=== PATIENT | female | born 1945 | race Caucasian/White ===

== ENCOUNTER → 2016-06-10 | Outpatient (CLI) | payer OTHER ==
[~2016-06-10] MED LIST: ASPIR 8181 M1 PO; ASPIRIN81 M1 PO; ATIVAN1 MG PO; CALCIUM 500 MG1 EACH PO; CENTRUM SILVER1 EACH PO; CITRACAL PLUS1 EAC1 PO; COMPAZINE10 MG PO; EDLUAR10 MG SL; FLEXERIL10 MG PO; FLEXERIL5 MG PO; GLUCOPHAGE XR,500 MG PO; IRON160 M1 PO; LEVOTHROID,S0.075 MG PO; LEVOTHYROXINE75 MCG PO; LIPITOR40 MG PO; LUMIGAN 0.50 DROP/22 BOTH EYES; LYRICA50 MG PO; NEXIUM20 MG PO; NEXIUM40 MG PO; OMEGA-3 KRILL1 EACH PO; PAXIL CR25 MG PO; PAXIL CR37.5 MG PO; RECLAST 55 MG/100 M; THIAMINE,VITAM100 MG PO; TOPAMAX100 MG PO; TOPAMAX200 MG PO; Tylenol Regular Stre PO; ULTRAM50 MG PO; VITAMIN B-1100 MG PO; VITAMIN B-121000 MCG PO; VITAMIN D31000 UNIT PO; ZANTAC150 MG PO; ZESTRIL2.5 MG PO
== END | disposition home or self-care (01) ==
DX: M17.11 Unilateral primary osteoarthritis, right knee (principal); R26.2 Difficulty in walking, not elsewhere classified; M62.81 Muscle weakness (generalized); M25.661 Stiffness of right knee, not elsewhere classified
CPT/HCPCS: 97110 GP; 97150 GO; 97161 GP; 97165 GO; G8978 GP; G8979 GP; G8980 GP; G8987 GO; G8988 GO; G8989 GO

== ENCOUNTER 2016-06-16 10:17 | Inpatient (IN) | payer OTHER ==
[~2016-06-16] VITALS: Ht 154.9 cm; Wt 68.3 kg
[2016-06-16 12:57] LABS: POINT-OF-CARE METER ID UU14174212
[2016-06-16 13:19] VITALS: BP 156/71
[2016-06-16 17:30] LABS: POINT-OF-CARE METER ID UU13113675
[2016-06-16 19:19] LABS: PROTHROMBIN TIME 10.5 (9.2-11.2)
[2016-06-16 20:00] VITALS: BP 139/63
[2016-06-16 20:02] VITALS: BP 139/63
[2016-06-16 22:50] LABS: POINT-OF-CARE METER ID UU14188577
[2016-06-16 23:26] VITALS: BP 129/61
[2016-06-17 04:34] VITALS: BP 114/59
[2016-06-17 05:37] LABS: HEMATOCRIT 33.6 % (36.0-46.0); MCV 93.9 FL (83-99)
[2016-06-17 06:12] LABS: PROTHROMBIN TIME 10.1 (9.2-11.2)
[2016-06-17 06:27] LABS: ANION GAP 7 MEQ/L (2-14); CHLORIDE 105 MEQ/L (99-109); GFR ESTIMATE (CALCULATED) > 59 mL/min/; GLUCOSE 136 mg/dL (70-99); POTASSIUM 3.5 MEQ/L (3.7-5.4); SAMPLE HEMOLYSIS CHECK 0; SAMPLE ICTERIC CHECK 0; SAMPLE LIPEMIA CHECK 0; SODIUM 138 MEQ/L (136-147); UREA NITROGEN (BUN) 17 mg/dL (9-23)
[2016-06-17 07:32] VITALS: BP 138/58
[2016-06-17] MEDS ORDERED: PERCOCET 5/31 TABLET PO (07:44)
[2016-06-17] MEDS ORDERED: COUMADIN2.5 MG PO (07:44)
[2016-06-17] MEDS ORDERED: VISTARIL25 MG PO (07:44)
[2016-06-17 11:50] VITALS: BP 174/73
[2016-06-17 15:33] VITALS: BP 179/77
[2016-06-17 17:27] LABS: POINT-OF-CARE METER ID UU14188577
[2016-06-17 21:51] LABS: POINT-OF-CARE METER ID UU14188577
[2016-06-18 00:03] VITALS: BP 122/58
[2016-06-18 05:59] LABS: HEMATOCRIT 36.6 % (36.0-46.0); MCV 92.4 FL (83-99)
[2016-06-18 06:31] LABS: INTER. NORMALIZED RATIO 1.6
[2016-06-18 06:33] LABS: POINT-OF-CARE METER ID UU14188577
[2016-06-18 07:31] VITALS: BP 135/64
[2016-06-18] MEDS ORDERED: DILAUDID2 MG PO (08:21)
[2016-06-18 12:24] LABS: POINT-OF-CARE METER ID UU14188577
[2016-06-18 15:24] VITALS: BP 127/60
[2016-06-18 16:18] LABS: POINT-OF-CARE METER ID UU14149397
== END 2016-06-18 17:43 | disposition home or self-care (01) | DRG 470 ==
LOC: 2SOUTH 10:17 → 3EAST 12:20 → 2SOUTH 12:20 → 3EAST 19:51
PROVIDERS: Orthopaedic Surgery
PROC: 0SRC0J9 Replacement of Right Knee Joint with Synthetic Substitute, Cemented, Open Approach (ICD-10-PCS; principal; 2016-06-17)
DX: M17.11 Unilateral primary osteoarthritis, right knee (principal); I10 Essential (primary) hypertension; K27.9 Peptic ulcer, site unspecified, unspecified as acute or chronic, without hemorrhage or perforation; E11.9 Type 2 diabetes mellitus without complications; R01.1 Cardiac murmur, unspecified
CPT/HCPCS: 80048; 82948; 85014; 85018; 85610; 97530 GP; C1713; J0690; J1815; J1885; J2250; J2405; J7050; J7120

== ENCOUNTER 2017-01-06 18:58 | Inpatient (IN) | payer OTHER ==
[~2017-01-06] VITALS: Ht 154.9 cm; Wt 68.4 kg
[~2017-01-06 18:58] MED LIST changes: +CENTRUM SILVER1 EAC4 PO; -CENTRUM SILVER1 EACH PO; +COUMADIN2.5 MG PO; +DILAUDID2 MG PO; +PERCOCET 5/31 TABLET PO; +VISTARIL25 MG PO
[2017-01-06 20:47] LABS: HEMATOCRIT 38.6 % (36.0-46.0); MCHC 33.2 G/DL (30.0-36.0); MCV 90.6 FL (83-99); MEAN PLAT.VOLUME 9.5 uM^3 (9.5-12.4); PLATELET COUNT 265 K/uL (156-360); RBC DIS.WIDTH-CV 12.5 % (11.8-14.6); RBC DIS.WIDTH-SD 41.4 % (39-53); RED BLOOD COUNT 4.26 M/uL (3.80-5.20); WHITE BLOOD COUNT 7.1 K/uL (4.1-10.2)
[2017-01-06 21:07] LABS: CHLORIDE 108 mEq/L (99-109); POTASSIUM 3.7 mEq/L (3.7-5.4); SODIUM 139 mEq/L (136-147)
[2017-01-06 21:08] LABS: GLUCOSE 86 mg/dL (70-99)
[2017-01-06 21:10] LABS: ANION GAP 8 MEQ/L (2-14)
[2017-01-06 21:12] LABS: GFR ESTIMATE (CALCULATED) > 59 mL/min/
[2017-01-06 21:13] LABS: TROP-I INTERPRETATION NEGATIVE; TROPONIN-I < 0.01 ng/mL (0.0-0.30); UREA NITROGEN (BUN) 18 mg/dL (9-23)
[2017-01-06] MEDS ORDERED: LISINOPRIL5 MG PO (23:15)
[2017-01-06] MEDS ORDERED: PAROXETINE HCL40 MG PO (23:16)
[2017-01-06] MEDS ORDERED: METFORMIN HCL500 MG PO (23:17)
[2017-01-06] MEDS ORDERED: ATORVASTATIN CA40 MG PO (23:20)
[2017-01-06] MEDS ORDERED: TOPIRAMATE200 MG PO (23:21)
[2017-01-06] MEDS ORDERED: LO-DOSE ASPIRIN81 M2 PO (23:36)
[2017-01-07 06:49] LABS: TROP-I INTERPRETATION NEGATIVE; TROPONIN-I < 0.01 ng/mL (0.0-0.30)
[2017-01-07 08:00] VITALS: BP 158/75
[2017-01-07 11:14] VITALS: BP 102/55
[2017-01-07 15:38] VITALS: BP 154/83
[2017-01-07 16:20] VITALS: BP 169/79
[2017-01-07 19:48] VITALS: BP 129/59
[2017-01-07 22:28] LABS: HDL CHOLESTEROL 42 MG/DL (Desirable>=50); LDL CHOLESTEROL 72 mg/dL (Desirable<100); NON-HDL CHOLESTEROL 123 mg/dL (Desirable<160); TOTAL CHOLESTEROL 165 mg/dL (Desirable<200); TRIGLYCERIDES 257 MG/DL (Normal: <150)
[2017-01-07 22:30] LABS: Estimated Average Glucose 128 mg/dL (70-123); HEMOGLOBIN A1c (GLYCOHEMOGLOB) 6.1 % HGB (Below 5.7)
[2017-01-07 22:37] LABS: CREATINE KINASE 37 IU/L (1-294); TOTAL CK 37 IU/L (1-294)
[2017-01-07 22:52] LABS: TROP-I INTERPRETATION NEGATIVE; TROPONIN-I < 0.01 ng/mL (0.0-0.30)
[2017-01-07 22:55] LABS: CK-MB 1.2 ng/mL (0.0-4.9)
[2017-01-08 00:35] VITALS: BP 140/66
[2017-01-08 04:31] VITALS: BP 115/55
[2017-01-08 07:19] LABS: TROP-I INTERPRETATION NEGATIVE; TROPONIN-I < 0.01 ng/mL (0.0-0.30)
[2017-01-08 07:33] LABS: CREATINE KINASE 29 IU/L (1-294); TOTAL CK 29 IU/L (1-294)
[2017-01-08 08:01] VITALS: BP 152/81
[2017-01-08 08:30] LABS: CK-MB 1.1 ng/mL (0.0-4.9)
[2017-01-08 09:16] LABS: POINT-OF-CARE METER ID UU14174225
[2017-01-08 11:26] VITALS: BP 150/67
[2017-01-08 14:49] LABS: CREATINE KINASE 39 IU/L (1-294); TOTAL CK 39 IU/L (1-294)
[2017-01-08 14:54] LABS: CK-MB 1.6 ng/mL (0.0-4.9); TROP-I INTERPRETATION NEGATIVE; TROPONIN-I < 0.01 ng/mL (0.0-0.30)
[2017-01-08 16:00] VITALS: BP 140/76
[2017-01-08 19:42] VITALS: BP 163/70
[2017-01-09 00:56] VITALS: BP 137/73
[2017-01-09 03:56] VITALS: BP 130/70
[2017-01-09 06:27] LABS: HEMATOCRIT 36.8 % (36.0-46.0); MCH 30.5 PG (29.0-34.0); MCHC 33.2 G/DL (30.0-36.0); MEAN PLAT.VOLUME 9.5 uM^3 (9.5-12.4); PLATELET COUNT 250 K/uL (156-360); RBC DIS.WIDTH-CV 12.3 % (11.8-14.6); RBC DIS.WIDTH-SD 41.9 % (39-53); WHITE BLOOD COUNT 6.8 K/uL (4.1-10.2)
[2017-01-09 06:50] LABS: ANION GAP 8 MEQ/L (2-14); CHLORIDE 111 MEQ/L (99-109); GFR ESTIMATE (CALCULATED) > 59 mL/min/; GLUCOSE 88 mg/dL (70-99); POTASSIUM 3.9 MEQ/L (3.7-5.4); SAMPLE HEMOLYSIS CHECK 0; SAMPLE ICTERIC CHECK 0; SAMPLE LIPEMIA CHECK 0; SODIUM 143 MEQ/L (136-147); UREA NITROGEN (BUN) 13 mg/dL (9-23)
[2017-01-09 08:30] VITALS: BP 136/68
== END 2017-01-09 14:17 | disposition home or self-care (01) | DRG 69 ==
LOC: EME 18:58 → 5SOUTH 01-07 06:22 → EDOF 01-07 06:22 → ENRESERV 01-07 06:47 → 5SOUTH 01-07 16:07
PROVIDERS: Emergency Medicine; Family Medicine
DX: G45.9 Transient cerebral ischemic attack, unspecified (principal); G43.109 Migraine with aura, not intractable, without status migrainosus; R07.9 Chest pain, unspecified; E11.9 Type 2 diabetes mellitus without complications; I10 Essential (primary) hypertension; K21.9 Gastro-esophageal reflux disease without esophagitis; E03.9 Hypothyroidism, unspecified; E78.5 Hyperlipidemia, unspecified; F41.9 Anxiety disorder, unspecified; G47.00 Insomnia, unspecified; G89.29 Other chronic pain; M54.5 Low back pain; Z96.651 Presence of right artificial knee joint; Z87.11 Personal history of peptic ulcer disease; Z79.84 Long term (current) use of oral hypoglycemic drugs
CPT/HCPCS: 70450; 70544; 70547; 70551; 71020; 80048; 80061; 82550; 82550 91; 82553; 82948; 83036; 84484; 85027; 93005; 99281; 99285; J1885; J7030

== ENCOUNTER 2017-08-13 14:44 | Emergency (ER) | payer OTHER ==
[~2017-08-13] VITALS: Ht 154.9 cm; Wt 68.9 kg
[~2017-08-13 14:44] MED LIST changes: +ATORVASTATIN CA40 MG PO; +LISINOPRIL5 MG PO; +LO-DOSE ASPIRIN81 M2 PO; +METFORMIN HCL500 MG PO; +PAROXETINE HCL40 MG PO; +TOPIRAMATE200 MG PO
[2017-08-13 16:05] LABS: BASOPHIL (%) 0.3 % (0-1); EOSINOPHIL (%) 4.4 % (0-5); EOSINOPHIL COUNT 0.3 K/uL (0-0.3); HEMOGLOBIN 13.5 G/DL (11.9-15.5); IMMATURE GRANULOCYTE (%) 0.1 % (0.0-0.7); LYMPHOCYTE (%) 48.3 % (15-42); LYMPHOCYTE COUNT 3.4 K/uL (1.0-2.8); MCH 30.2 PG (29.0-34.0); MCHC 33.8 G/DL (30.0-36.0); MCV 89.5 FL (83-99); MONOCYTE (%) 8.3 % (3-12); MONOCYTE COUNT 0.6 K/uL (0-0.8); NEUTROPHIL (%) 38.6 % (45-76); NEUTROPHIL COUNT 2.7 K/uL (1.8-6.4); PLATELET COUNT 270 K/uL (156-360); RBC DIS.WIDTH-CV 12.3 % (11.8-14.6); RBC DIS.WIDTH-SD 40.5 % (39-53); RED BLOOD COUNT 4.47 M/uL (3.80-5.20)
[2017-08-13 16:16] LABS: CHLORIDE 107 mEq/L (99-109); POTASSIUM 3.7 mEq/L (3.7-5.4); SODIUM 143 mEq/L (136-147)
[2017-08-13 16:18] LABS: GLUCOSE 91 mg/dL (70-99)
[2017-08-13 16:22] LABS: CREATININE 0.7 mg/dL (0.6-1.3); GFR ESTIMATE (CALCULATED) > 59 mL/min/
[2017-08-13 16:23] LABS: UREA NITROGEN (BUN) 13 mg/dL (9-23)
[2017-08-13 16:57] LABS: ERTH.SED.RATE 11 MM/HR (0-30)
[2017-08-13 17:30] VITALS: BP 162/70
== END 2017-08-13 17:33 | disposition home or self-care (01) ==
LOC: EME 14:44
PROVIDERS: Physician Assistant
DX: R51 Headache (principal); R11.0 Nausea; I10 Essential (primary) hypertension; E78.5 Hyperlipidemia, unspecified; E03.9 Hypothyroidism, unspecified; E11.9 Type 2 diabetes mellitus without complications; Z79.84 Long term (current) use of oral hypoglycemic drugs; Z79.82 Long term (current) use of aspirin
CPT/HCPCS: 70450; 80048; 85025; 85651; 99281; 99285; J1885